=== PATIENT | male | born 1995 | race Caucasian/White ===

== ENCOUNTER 2023-04-03 19:31 | Emergency (ER) | payer SELFPAY ==
[2023-04-03 19:36] VITALS: BP 135/81; PULSE 76; RESP 17; TEMP 36.5; O2SAT 98; BMI 21.6
[2023-04-03 21:46] VITALS: BP 115/75; PULSE 64; O2SAT 100
--- NOTE | 2023-04-03 21:49 | PC.NURSE ---
Pt reports abscess on his inner left check with right sided facial swelling and generalized not feeling well. Pt did warm salt water rinses and reports it got better.
[2023-04-03 22:00] VITALS: BP 112/64; PULSE 62; O2SAT 100
[2023-04-03 22:30] VITALS: BP 114/71; PULSE 61; O2SAT 100
[2023-04-03 23:00] VITALS: BP 110/66; PULSE 65; O2SAT 100
--- NOTE | 2023-04-03 23:07 | ED_ITS ---
HPI - General Adult General Chief complaint: Dental/Oral Stated complaint: Tooth infection Time Seen by Provider: 04/03/23 22:36 Source: patient Mode of arrival: Ambulatory History of Present Illness HPI narrative: Otherwise healthy 27-year-old gentleman who presents with 5 days of left lower posterior jaw pain with facial swelling. He has 1 broken tooth and the tooth behind that has a missing filling. Noted swelling about a week ago begin doing salt water gargles noticed some drainage at around the area and the facial swelling improved significantly. Comes in today because he is still feeling general malaise and has a bit of discharge around the tooth. Pain is adequately controlled. He does not describe fevers or chills. Related Data Previous Rx's Medication Instructions Recorded amoxicillin 500 mg capsule 500 mg PO TID #15 caps 04/03/23 Allergies Allergy/AdvReac Type Severity Reaction Status Date / Time No Known Drug Allergies Allergy Verified 04/03/23 19:36 Review of Systems Review of Systems Narrative: Pertinent positive and negative findings as per HPI Patient History tobacco type: vaping alcohol intake frequency: a few times a week Substance Use Type: marijuana Exam Initial Vital Signs Initial Vital Signs: Vital Signs Temperature 97.7 F 04/03/23 19:36 Pulse Rate 76 04/03/23 19:36 Respiratory Rate 17 04/03/23 19:36 Blood Pressure 135/81 04/03/23 19:36 Pulse Oximetry 98 04/03/23 19:36 Oxygen Delivery Method Room Air 04/03/23 19:36 General: Alert appropriate in no acute distress HEENT: Some minor swelling to the left side of his jaw. He is able to open the jaw without pain or tenderness. The pre molar 1st molar and 2nd molar on the bottom left all with significant dental abnormalities (broken cusps and missing fillings). No obvious drainage. No cervical adenopathy Respiratory: Able to speak in full sentences, no obvious respiratory distress Skin: No obvious rashes, warm and dry Neurologic: Grossly intact no obvious asymmetries or abnormalities Psych: appropriate insight and affect, cooperative Course Vital Signs Vital signs: Vital Signs - 8 hr 04/03/23 19:36 Temperature 97.7 F Pulse Rate 76 Respiratory Rate 17 Blood Pressure 135/81 Pulse Oximetry 98 Oxygen Delivery Method Room Air Medical Decision Making [facility] Narrative Medical decision making narrative: CC: Dental pain with facial swelling, acute problem uncertain prognosis Data collected from: patient, Differential considered: Dental abscess, draining into sinus abscess, facial abscess Exam documented above, pertinent findings include: Pre molar 1st and 2nd molars all in the left with either broken areas, significant decay or missing previous fillings. No obvious drainage Discussion: 27-year-old gentleman with dental infection most of which is drained still feeling some general malaise and some mild facial fullness. Will place him on 5 days of Augmentin. Talked about [facility] for dental follow-up and explain the extensively long waits encouraged him to get on a waiting list and get an appointment scheduled even if it 6 months in the future. Findings reviewed at this point there is no evidence of sepsis, deeper infection, need for additional workup either imaging or lab ocasio and no need for hospitalization at this time. Questions are answered the patient is safe for discharge Discharge Plan Departure Patient Disposition: Home Clinical Impression: Dental caries, Dental abscess, Fracture of tooth Instructions: DI for Tooth Decay, DI for Dental Pain Activity Restrictions/Additional Instructions: Thank you for coming in today You did everything correctly when you 1st started having pain. Please do continue with saline washes. Most of the infection has drained. I am going to place you on 5 days of amoxicillin, please complete the entire course. It would be appropriate to continue doing the saline washes as you have been doing. Prescription was electronically transmitted to [facility] in [place] I would encourage you to follow-up with the [facility] dental clinics. Their wait list is quite long however it is worth getting an appointment scheduled even if it is a number of months in the future. If you find that you are having worsening symptoms or problems please return to the ER Prescriptions: New amoxicillin 500 mg capsule 500 mg PO TID Qty: 15 0RF Stand Alone Forms: Patient Portal/API
[2023-04-03] MEDS: AMOXICILLIN 250 MG CAPSULE 500 MG PO (23:20)
== END 2023-04-03 23:28 | disposition home or self-care (01) ==
PROVIDERS: Emergency Provider Emergency Medicine
DX: K04.7 Periapical abscess without sinus (principal); K02.9 Dental caries, unspecified; S02.5XXA Fracture of tooth (traumatic), initial encounter for closed fracture
CPT/HCPCS: 99283